=== PATIENT | male | born 1995 | race Caucasian/White ===

== ENCOUNTER 2018-12-09 10:32 | Emergency (ER) | payer SELFPAY ==
--- NOTE | 2018-12-09 10:37 | EDM.PDOC ---
ED HPI GENERAL MEDICAL PROBLEM - General Chief Complaint: Upper Extremity Injury/Pain Stated Complaint: FELL ON LEFT HAND Time Seen by Provider: 12/09/18 10:35 Source of Information: Reports: Patient History Limitations: Reports: No Limitations - History of Present Illness INITIAL COMMENTS - FREE TEXT/NARRATIVE: HISTORY AND PHYSICAL: History of present illness: Patient is a 23-year-old male who presents to the emergency room today with complaints of left wrist pain near the radius/thumb. He states he fell on an outstretched hand off of his skateboard area and he denies hitting his head or any loss of consciousness. Denies any numbness or tingling. Able to squeeze and make a fist without difficulty, although does cause some pain to the noonan surface near the thumb. Patient denies any fever, chills, headache, change in vision, syncope or near syncope. Denies any chest pain, back pain, shortness of breath or cough. Denies any abdominal pain, nausea, vomiting, diarrhea, constipation or dysuria. Has not noted any blood in urine or stool. Patient has been eating and drinking appropriately. Review of systems: As per history of present illness and below otherwise all systems reviewed and negative. Past medical history: As per history of present illness and as reviewed below otherwise noncontributory. Surgical history: As per history of present illness and as reviewed below otherwise noncontributory. Social history: See social history for further information Family history: As per history of present illness and as reviewed below otherwise noncontributory. Physical exam: General: Well-developed and well-nourished 23-year-old male. Alert and oriented. Nontoxic appearing and in no acute distress. HEENT: Atraumatic, normocephalic, pupils equal and reactive bilaterally, negative for conjunctival pallor or scleral icterus, mucous membranes moist, TMs normal bilaterally, throat clear, neck supple, nontender, trachea midline. No drooling or trismus noted. No meningeal signs. No hot potato voice noted. Lungs: Clear to auscultation, breath sounds equal bilaterally, chest nontender. Heart: S1S2, regular rate and rhythm without overt murmur Abdomen: Soft, nondistended, nontender. Negative for masses or hepatosplenomegaly. Negative for costovertebral tenderness. Pelvis: Stable nontender. Genitourinary: Deferred. Rectal: Deferred. Skin: Intact, warm, dry. No lesions or rashes noted. Extremities: Moves all extremities per self without difficulty or deficits, although does have pain with grasping/squeezing of the left hand along the palmar surface near the base of the left thumb. Tenderness with palpation to base of left thumb, strong radial pulse. Neurovascular unremarkable. Neuro: Awake, alert, oriented. Cranial nerves II through XII unremarkable. Cerebellum unremarkable. Motor and sensory unremarkable throughout. Exam nonfocal. Notes: X-ray shows no acute osseous abnormality, dislocation or fracture. We'll place in a thumb spica wrist splint. Encouraged to follow up with the orthopedic provider for follow-up and management. Supportive care measures were reviewed and discussed. Voices understanding and is agreeable to plan of care. Denies any further questions or concerns at this time. Diagnostics: X-ray wrist Therapeutics: Thumb spica wrist splint Prescription: Diclofenac Impression: Left wrist injury Plan: 1. Rest, ice, elevate the affected extremity. Please wear the splint as directed. 2. Tylenol and/or Ibuprofen as needed for pain management. 3. Follow up with the Orthopedic provider as we discussed. Return to the ED as needed and as discussed. Definitive disposition and diagnosis as appropriate pending reevaluation and review of above. Left Wrist Pain Score (Numeric/FACES): 5 - Related Data Allergies Allergy/AdvReac Type Severity Reaction Status Date / Time acetaminophen Allergy Vomiting Verified 12/09/18 10:45 Home Meds: Home Meds . [No Known Home Meds] 12/09/18 [History] Review of Systems - Review of Systems Review Of Systems: ROS reveals no pertinent complaints other than HPI. ED EXAM, GENERAL - Physical Exam Exam: See Below (See dictation) Course - Vital Signs Last Recorded V/S: Last Vital Signs Temp 98.0 F 12/09/18 10:42 Pulse 76 12/09/18 10:42 Resp 18 12/09/18 10:42 BP 131/70 12/09/18 10:42 Pulse Ox 99 12/09/18 10:42 - Orders/Labs/Meds Orders: Active Orders 24 hr Category Date Time Status DME for Discharge [COMM] Stat Oth 12/09/18 11:13 Ordered Meds: Medications Discontinued Medications Generic Name Dose Route Start Last Admin Trade Name Freq PRN Reason Stop Dose Admin Ketorolac Tromethamine 60 mg 12/09/18 10:47 Toradol IM 12/09/18 10:48 ONETIME ONE Departure - Departure Time of Disposition: 11:24 Disposition: Home, Self-Care 01 Clinical Impression: Left wrist injury Qualifiers: Encounter type: initial encounter Qualified Code(s): S69.92XA - Unspecified injury of left wrist, hand and finger(s), initial encounter - Discharge Information Instructions: Wrist Splint, Adult, [id number] Forms: ED Department Discharge Additional Instructions: The following information is given to patients seen in the emergency department who are being discharged to home. This information is to outline your options for follow-up care. We provide all patients seen in our emergency department with a follow-up referral. The need for follow-up, as well as the timing and circumstances, are variable depending upon the specifics of your emergency department visit. If you don't have a primary care physician on staff, we will provide you with a referral. We always advise you to contact your personal physician following an emergency department visit to inform them of the circumstance of the visit and for follow-up with them and/or the need for any referrals to a consulting specialist. The emergency department will also refer you to a specialist when appropriate. This referral assures that you have the opportunity for follow-up care with a specialist. All of these measure are taken in an effort to provide you with optimal care, which includes your follow-up. Under all circumstances we always encourage you to contact your private physician who remains a resource for coordinating your care. When calling for follow-up care, please make the office aware that this follow-up is from your recent emergency room visit. If for any reason you are refused follow-up, please contact the [facility] Emergency Department at and asked to speak to the emergency department charge nurse. [facility] [address] [place] [id number] [address] [facility] - [facility] Professional Building [address] [place] [address], [address] [place] [address] 1. Rest, ice, elevate the affected extremity. Please wear the splint as directed. 2. Tylenol and/or Ibuprofen as needed for pain management. 3. Follow up with the Orthopedic provider as we discussed. Return to the ED as needed and as discussed. - My Orders Last 24 Hours: My Active Orders 12/09/18 11:13 DME for Discharge [COMM] Stat - Assessment/Plan Last 24 Hours: My Active Orders 12/09/18 11:13 DME for Discharge [COMM] Stat
[2018-12-09] MEDS ORDERED: Ketorolac 60 MG/2 ML SDV IM ONE (10:47)
--- NOTE | 2018-12-09 11:21 | CR ---
EXAMINATION: Left wrist HISTORY: Fall COMPARISON: None TECHNIQUE: 3 views FINDINGS/IMPRESSION: There is no acute osseous abnormality, dislocation, or fracture. Bone mineralization is normal. The radiocarpal alignment is preserved.
== END 2018-12-09 11:50 | disposition home or self-care (01) ==
LOC: MW.ED 10:32
DX: S69.92XA Unspecified injury of left wrist, hand and finger(s), initial encounter (principal); V00.131A Fall from skateboard, initial encounter
CPT/HCPCS: 29125; 73110; 96372; 99283; J1885

== ENCOUNTER 2019-02-24 10:31 | Emergency (ER) | payer SELFPAY ==
--- NOTE | 2019-02-24 11:01 | EDM.PDOC ---
ED HPI GENERAL MEDICAL PROBLEM - General Chief Complaint: Lower Extremity Injury/Pain Stated Complaint: INJURED LT FOOT Time Seen by Provider: 02/24/19 11:01 Source of Information: Reports: Patient History Limitations: Reports: No Limitations - History of Present Illness INITIAL COMMENTS - FREE TEXT/NARRATIVE: HISTORY AND PHYSICAL: History of present illness: Patient is a 23-year-old male presents to the ED with complaint of left foot pain. He states he went for a run a couple of days ago, woke up the next day with pain in his left foot. States it is a sharp pain when he bears weight on it. Denies any specific injury or trauma. Review of systems: As per history of present illness and below otherwise all systems reviewed and negative. Past medical history: As per history of present illness and as reviewed below otherwise noncontributory. Surgical history: As per history of present illness and as reviewed below otherwise noncontributory. Social history: No reported history of drug or alcohol abuse. Family history: As per history of present illness and as reviewed below otherwise noncontributory. Physical exam: General: Patient sitting comfortably in no acute distress and nontoxic appearing HEENT: Atraumatic, normocephalic, pupils reactive, negative for conjunctival pallor or scleral icterus, mucous membranes moist, throat clear, neck supple, nontender, trachea midline. No meningeal signs. Lungs: Clear to auscultation, breath sounds equal bilaterally, chest nontender. Heart: S1S2, regular, negative for clicks, rubs, or overt murmur. Abdomen: Soft, nondistended, nontender. Negative for masses or hepatosplenomegaly. Negative for costovertebral tenderness. No rigidity, rebound , guarding. Pelvis: Stable nontender. Genitourinary: Deferred. Rectal: Deferred. Extremities: No obvious deformity or swelling. No ankle tenderness to palpation of ROM. Pain to palpation of the left lateral foot. CMS intact distally. Atraumatic, negative for cords or calf pain. Neurovascular unremarkable. Neuro: Awake, alert, oriented. Cranial nerves II through XII unremarkable. Cerebellum unremarkable. Motor and sensory unremarkable throughout. Exam nonfocal. Notes: Diagnostics: x-ray left foot Therapeutics: Post op shoes Crutches Prescriptions: Impression: Left foot pain Plan: Ice, elevate, and motrin as needed as discussed Follow up with primary care provider or podiatry Return to ED as needed as discussed Definitive disposition and diagnosis as appropriate pending reevaluation and review of above. Left Foot Pain Score (Numeric/FACES): 8 - Related Data Allergies Allergy/AdvReac Type Severity Reaction Status Date / Time acetaminophen Allergy Vomiting Verified 02/24/19 10:41 Home Meds: Home Meds . [No Known Home Meds] 02/24/19 [History] Past Medical History - Infectious Disease History Infectious Disease History: Reports: None - Past Surgical History GI Surgical History: Reports: Appendectomy, Hernia, Abdominal Other Musculoskeletal Surgeries/Procedures:: has had a couple of broken bones in the past; L radial/ulnar fx Social & Family History - Family History Family Medical History: Noncontributory - Tobacco Use Smoking Status *Q: Current Every Day Smoker Years of Tobacco use: 1 Packs/Tins Daily: 0.5 - Caffeine Use Caffeine Use: Reports: Coffee, Energy Drinks - Recreational Drug Use Recreational Drug Use: No Review of Systems - Review of Systems Review Of Systems: ROS reveals no pertinent complaints other than HPI. ED EXAM, GENERAL - Physical Exam Exam: See Below (see dictation) Course - Vital Signs Last Recorded V/S: Last Vital Signs Temp 97.2 F 02/24/19 10:41 Pulse 69 02/24/19 10:41 Resp 16 02/24/19 10:41 BP 119/66 02/24/19 10:41 Pulse Ox 97 02/24/19 10:41 - Orders/Labs/Meds Orders: Active Orders 24 hr Category Date Time Status DME for Discharge [COMM] Stat Oth 02/24/19 12:19 Ordered Departure - Departure Time of Disposition: 12:30 Disposition: Home, Self-Care 01 Condition: Good Clinical Impression: Left foot pain - Discharge Information Referrals: PCP,Unknown [Primary Care Provider] - Forms: ED Department Discharge Additional Instructions: The following information is given to patients seen in the emergency department who are being discharged to home. This information is to outline your options for follow-up care. We provide all patients seen in our emergency department with a follow-up referral. The need for follow-up, as well as the timing and circumstances, are variable depending upon the specifics of your emergency department visit. If you don't have a primary care physician on staff, we will provide you with a referral. We always advise you to contact your personal physician following an emergency department visit to inform them of the circumstance of the visit and for follow-up with them and/or the need for any referrals to a consulting specialist. The emergency department will also refer you to a specialist when appropriate. This referral assures that you have the opportunity for follow-up care with a specialist. All of these measure are taken in an effort to provide you with optimal care, which includes your follow-up. Under all circumstances we always encourage you to contact your private physician who remains a resource for coordinating your care. When calling for follow-up care, please make the office aware that this follow-up is from your recent emergency room visit. If for any reason you are refused follow-up, please contact the [facility] Emergency Department at and asked to speak to the emergency department charge nurse. [facility] [address] [place] [address] [facility] [address] [place] [id number] [facility] Primary Care - Podiatry [address] [place] [id number] [facility] [address] [place] [address] Ice, elevate, and motrin as needed as discussed Follow up with primary care provider or podiatry Return to ED as needed as discussed - My Orders Last 24 Hours: My Active Orders 02/24/19 12:19 DME for Discharge [COMM] Stat - Assessment/Plan Last 24 Hours: My Active Orders 02/24/19 12:19 DME for Discharge [COMM] Stat
--- NOTE | 2019-02-24 12:26 | CR ---
EXAMINATION: Left foot HISTORY: Pain COMPARISON: None TECHNIQUE: 2 views FINDINGS/IMPRESSION: Lucency along the lateral aspect of the navicular bone, likely an accessory ossification without a definite fracture. Remaining osseous structures and joint spaces appear preserved. Bone mineralization is otherwise normal.
== END 2019-02-24 12:40 | disposition home or self-care (01) ==
LOC: MW.ED 10:31
DX: M79.672 Pain in left foot (principal); Z88.6 Allergy status to analgesic agent
CPT/HCPCS: 73620-26-LT; 73620-LT; 99283; 99283-25

== ENCOUNTER 2019-03-24 20:36 | Emergency (ER) | payer SELFPAY ==
[2019-03-24] MEDS ORDERED: cefTRIAXone 1 GM Vial IM ONE (21:01)
--- NOTE | 2019-03-24 21:01 | EDM.PDOC ---
ED HPI GENERAL MEDICAL PROBLEM - General Chief Complaint: Skin Complaint Stated Complaint: BITE ON RT ARM Time Seen by Provider: 03/24/19 20:58 Source of Information: Reports: Patient - History of Present Illness INITIAL COMMENTS - FREE TEXT/NARRATIVE: HISTORY AND PHYSICAL: History of present illness: [Patient presents with cellulitis on his right upper extremity he has a small boil which is drained by squeezing but currently has a surrounding cellulitis 6 cm just proximal of his elbow no joint involvement free range of motion with no pain in his red nontender small central focus of induration about the size of a dime where he has been draining the lesion No fever nausea vomiting chills sweats ] Review of systems: As per history of present illness and below otherwise all systems reviewed and negative. Past medical history: As per history of present illness and as reviewed below otherwise noncontributory. Surgical history: As per history of present illness and as reviewed below otherwise noncontributory. Social history: No reported history of drug or alcohol abuse. Family history: As per history of present illness and as reviewed below otherwise noncontributory. Physical exam: HEENT: Atraumatic, normocephalic, pupils reactive, negative for conjunctival pallor or scleral icterus, mucous membranes moist, throat clear, neck supple, nontender, trachea midline. Lungs: Clear to auscultation, breath sounds equal bilaterally, chest nontender. Heart: S1S2, regular, negative for clicks, rubs, or JVD. Abdomen: Soft, nondistended, nontender. Negative for masses or hepatosplenomegaly. Negative for costovertebral tenderness. Pelvis: Stable nontender. Genitourinary: Deferred. Rectal: Deferred. Extremities: Atraumatic, negative for cords or calf pain. Neurovascular unremarkable. Neuro: Awake, alert, oriented. Cranial nerves II through XII unremarkable. Cerebellum unremarkable. Motor and sensory unremarkable throughout. Exam nonfocal. Gent as per history of present illness otherwise unremarkable Diagnostics: [Demarcated lesion with skin pen ] Therapeutics: [1 g Rocephin IM Bactrim double strength #20 no refill ] Impression: [cellulitis] Definitive disposition and diagnosis as appropriate pending reevaluation and review of above. Right Upper Arm Pain Score (Numeric/FACES): 3 - Related Data Allergies Allergy/AdvReac Type Severity Reaction Status Date / Time acetaminophen Allergy Vomiting Verified 03/24/19 20:44 Home Meds: Home Meds . [No Known Home Meds] 02/24/19 [History] Past Medical History - Infectious Disease History Infectious Disease History: Reports: None - Past Surgical History GI Surgical History: Reports: Appendectomy, Hernia, Abdominal Other Musculoskeletal Surgeries/Procedures:: has had a couple of broken bones in the past; L radial/ulnar fx Social & Family History - Family History Family Medical History: Noncontributory - Tobacco Use Smoking Status *Q: Current Every Day Smoker Years of Tobacco use: 10 Packs/Tins Daily: 0.5 - Caffeine Use Caffeine Use: Reports: Energy Drinks - Recreational Drug Use Recreational Drug Use: No ED ROS GENERAL - Review of Systems Review Of Systems: See Below ED EXAM, SKIN/RASH Exam: See Below Course - Vital Signs Last Recorded V/S: Last Vital Signs Temp 96.9 F 03/24/19 20:45 Pulse 88 03/24/19 20:45 Resp 18 03/24/19 20:45 BP 118/72 03/24/19 20:45 Pulse Ox 97 03/24/19 20:45 Departure - Departure Time of Disposition: 21:00 Disposition: Home, Self-Care 01 Condition: Good Clinical Impression: Cellulitis - Discharge Information Referrals: PCP,None [Primary Care Provider] - Additional Instructions: The following information is given to patients seen in the emergency department who are being discharged to home. This information is to outline your options for follow-up care. We provide all patients seen in our emergency department with a follow-up referral. The need for follow-up, as well as the timing and circumstances, are variable depending upon the specifics of your emergency department visit. If you don't have a primary care physician on staff, we will provide you with a referral. We always advise you to contact your personal physician following an emergency department visit to inform them of the circumstance of the visit and for follow-up with them and/or the need for any referrals to a consulting specialist. The emergency department will also refer you to a specialist when appropriate. This referral assures that you have the opportunity for follow-up care with a specialist. All of these measure are taken in an effort to provide you with optimal care, which includes your follow-up. Under all circumstances we always encourage you to contact your private physician who remains a resource for coordinating your care. When calling for follow-up care, please make the office aware that this follow-up is from your recent emergency room visit. If for any reason you are refused follow-up, please contact the [facility] emergency department at and asked to speak to the emergency department charge nurse.
[2019-03-24] MEDS ORDERED: Lidocaine 1% 2 ML ONE (21:05)
== END 2019-03-24 21:33 | disposition home or self-care (01) ==
LOC: MW.ED 20:36
DX: L03.113 Cellulitis of right upper limb (principal); F17.210 Nicotine dependence, cigarettes, uncomplicated; Z88.6 Allergy status to analgesic agent
CPT/HCPCS: 96372; 99281; J0696; J2001; 99282

== ENCOUNTER 2019-07-20 11:44 | Emergency (ER) | payer SELFPAY ==
[2019-07-20] MEDS ORDERED: Albuterol/Ipratropium 3.0-0.5 MG/3 ML Neb Soln NEB ONE (11:58)
--- NOTE | 2019-07-20 11:59 | EDM.PDOC ---
ED HPI GENERAL MEDICAL PROBLEM - General Chief Complaint: ENT Problem Stated Complaint: SHORTNESS OF BREATHE Time Seen by Provider: 07/20/19 11:59 Source of Information: Reports: Patient - History of Present Illness INITIAL COMMENTS - FREE TEXT/NARRATIVE: HISTORY AND PHYSICAL: History of present illness: [patient has cough for 4 days increasing in severity, keeps patient awake at noc no f/n/v/c/s/, states sob although NAD, no retractions or pursed lip breathing] Review of systems: As per history of present illness and below otherwise all systems reviewed and negative. Past medical history: As per history of present illness and as reviewed below otherwise noncontributory. Surgical history: As per history of present illness and as reviewed below otherwise noncontributory. Social history: No reported history of drug or alcohol abuse. Family history: As per history of present illness and as reviewed below otherwise noncontributory. Physical exam: HEENT: Atraumatic, normocephalic, pupils reactive, negative for conjunctival pallor or scleral icterus, mucous membranes moist, throat clear, neck supple, nontender, trachea midline. Lungs: Clear to auscultation, breath sounds equal bilaterally, chest nontender. Heart: S1S2, regular, negative for clicks, rubs, or JVD. Abdomen: Soft, nondistended, nontender. Negative for masses or hepatosplenomegaly. Negative for costovertebral tenderness. Pelvis: Stable nontender. Genitourinary: Deferred. Rectal: Deferred. Extremities: Atraumatic, negative for cords or calf pain. Neurovascular unremarkable. Neuro: Awake, alert, oriented. Cranial nerves II through XII unremarkable. Cerebellum unremarkable. Motor and sensory unremarkable throughout. Exam nonfocal. Diagnostics: [influenza chest 1 v ] Therapeutics: [rest fluid nutrition phenergan /codeine 48 hours off work hfa ] Impression: influenza ] Definitive disposition and diagnosis as appropriate pending reevaluation and review of above. Chest Pain Score (Numeric/FACES): 4 - Related Data Allergies Allergy/AdvReac Type Severity Reaction Status Date / Time acetaminophen Allergy Vomiting Verified 07/20/19 11:58 Home Meds: Home Meds . [No Known Home Meds] 02/24/19 [History] Past Medical History - Infectious Disease History Infectious Disease History: Reports: None - Past Surgical History GI Surgical History: Reports: Appendectomy, Hernia, Abdominal Other Musculoskeletal Surgeries/Procedures:: has had a couple of broken bones in the past; L radial/ulnar fx Social & Family History - Family History Family Medical History: Noncontributory - Caffeine Use Caffeine Use: Reports: Energy Drinks ED ROS GENERAL - Review of Systems Review Of Systems: See Below ED EXAM, GENERAL - Physical Exam Exam: See Below Course - Vital Signs Last Recorded V/S: Last Vital Signs Temp 97.8 F 07/20/19 11:58 Pulse 81 07/20/19 11:58 Resp 18 07/20/19 11:58 BP 112/69 07/20/19 11:58 Pulse Ox 98 07/20/19 11:58 - Orders/Labs/Meds Orders: Active Orders 24 hr Category Date Time Status RT Aerosol Therapy [RC] ASDIRECTED Care 07/20/19 11:58 Active Meds: Medications Discontinued Medications Generic Name Dose Route Start Last Admin Trade Name Freq PRN Reason Stop Dose Admin Albuterol/Ipratropium 3 ml 07/20/19 11:58 07/20/19 12:07 Duoneb 3.0-0.5 Mg/3 Ml NEB 07/20/19 11:59 3 ml ONETIME ONE Administration Departure - Departure Time of Disposition: 12:36 Disposition: Home, Self-Care 01 Condition: Good Clinical Impression: Influenza - Discharge Information Referrals: PCP,None [Primary Care Provider] - Forms: ED Department Discharge Additional Instructions: The following information is given to patients seen in the emergency department who are being discharged to home. This information is to outline your options for follow-up care. We provide all patients seen in our emergency department with a follow-up referral. The need for follow-up, as well as the timing and circumstances, are variable depending upon the specifics of your emergency department visit. If you don't have a primary care physician on staff, we will provide you with a referral. We always advise you to contact your personal physician following an emergency department visit to inform them of the circumstance of the visit and for follow-up with them and/or the need for any referrals to a consulting specialist. The emergency department will also refer you to a specialist when appropriate. This referral assures that you have the opportunity for follow-up care with a specialist. All of these measure are taken in an effort to provide you with optimal care, which includes your follow-up. Under all circumstances we always encourage you to contact your private physician who remains a resource for coordinating your care. When calling for follow-up care, please make the office aware that this follow-up is from your recent emergency room visit. If for any reason you are refused follow-up, please contact the [facility] emergency department at and asked to speak to the emergency department charge nurse. Sepsis Event Note - Focused Exam Vital Signs: Vital Signs Temp Pulse Resp BP Pulse Ox 07/20/19 11:58 97.8 F 81 18 112/69 98 Date Exam was Performed: 07/20/19 Time Exam was Performed: 12:35 - My Orders Last 24 Hours: My Active Orders 07/20/19 11:58 RT Aerosol Therapy [RC] ASDIRECTED - Assessment/Plan Last 24 Hours: My Active Orders 07/20/19 11:58 RT Aerosol Therapy [RC] ASDIRECTED
--- NOTE | 2019-07-20 12:31 | CR ---
INDICATION: pain, SOAX 4 days TECHNIQUE: Chest 1 view. COMPARISON: None. FINDINGS: Cardiovascular and mediastinum: Heart size and vasculature are normal in caliber and appearance. Mediastinum is within normal limits. Lungs and pleural space: Lungs are clear. No sign of infiltrate or mass. No sign of pleural effusion. No pneumothorax. Bones and soft tissues: No significant findings. IMPRESSION: Unremarkable chest. Dictated by: Rio Lazo MD @ 07/20/2019 12:30:56 (Electronically Signed)
== END 2019-07-20 12:53 | disposition home or self-care (01) ==
LOC: MW.ED 11:44
DX: J11.1 Influenza due to unidentified influenza virus with other respiratory manifestations (principal); Z88.8 Allergy status to other drugs, medicaments and biological substances
CPT/HCPCS: 71045; 71045-26; 87804; 94640; 99283; 99285-25; J7620-GY

== ENCOUNTER 2019-09-06 08:44 | Emergency (ER) | payer SELFPAY ==
--- NOTE | 2019-09-06 09:02 | EDM.PDOC ---
ED HPI GENERAL MEDICAL PROBLEM - General Chief Complaint: ENT Problem Stated Complaint: SWOLLEN TONSILS Time Seen by Provider: 09/06/19 08:57 Source of Information: Reports: Patient - History of Present Illness INITIAL COMMENTS - FREE TEXT/NARRATIVE: HISTORY AND PHYSICAL: History of present illness: [Sore throat increasing in severity over the last several days some difficulty with solid food no difficulty with liquid no muffled voice drooling or trismus thank you] Review of systems: As per history of present illness and below otherwise all systems reviewed and negative. Past medical history: As per history of present illness and as reviewed below otherwise noncontributory. Surgical history: As per history of present illness and as reviewed below otherwise noncontributory. Social history: No reported history of drug or alcohol abuse. Family history: As per history of present illness and as reviewed below otherwise noncontributory. Physical exam: HEENT: Atraumatic, normocephalic, pupils reactive, negative for conjunctival pallor or scleral icterus, mucous membranes moist, throat clear, neck supple, nontender, trachea midline. Erythema no exudates no meningeal signs tympanic membranes injected no bulging no mastoid tenderness no pain with movement of the auricle Lungs: Clear to auscultation, breath sounds equal bilaterally, chest nontender. Heart: S1S2, regular, negative for clicks, rubs, or JVD. Abdomen: Soft, nondistended, nontender. Negative for masses or hepatosplenomegaly. Negative for costovertebral tenderness. Pelvis: Stable nontender. Genitourinary: Deferred. Rectal: Deferred. Extremities: Atraumatic, negative for cords or calf pain. Neurovascular unremarkable. Neuro: Awake, alert, oriented. Cranial nerves II through XII unremarkable. Cerebellum unremarkable. Motor and sensory unremarkable throughout. Exam nonfocal. Diagnostics: [] Therapeutics: [None able to swallow pills refused IM injections Amoxicillin 100 per 5 dosing ] Impression: [pharyngitis] Definitive disposition and diagnosis as appropriate pending reevaluation and review of above. - Related Data Allergies Allergy/AdvReac Type Severity Reaction Status Date / Time acetaminophen Allergy Vomiting Verified 07/20/19 11:58 Home Meds: Home Meds . [No Known Home Meds] 02/24/19 [History] Past Medical History - Infectious Disease History Infectious Disease History: Reports: None - Past Surgical History GI Surgical History: Reports: Appendectomy, Hernia, Abdominal Other Musculoskeletal Surgeries/Procedures:: has had a couple of broken bones in the past; L radial/ulnar fx Social & Family History - Family History Family Medical History: Noncontributory - Caffeine Use Caffeine Use: Reports: Energy Drinks ED ROS GENERAL - Review of Systems Review Of Systems: See Below ED EXAM, GENERAL - Physical Exam Exam: See Below Departure - Departure Time of Disposition: 09:00 Disposition: Home, Self-Care 01 Condition: Good Clinical Impression: Pharyngitis - Discharge Information Referrals: PCP,None [Primary Care Provider] - Additional Instructions: The following information is given to patients seen in the emergency department who are being discharged to home. This information is to outline your options for follow-up care. We provide all patients seen in our emergency department with a follow-up referral. The need for follow-up, as well as the timing and circumstances, are variable depending upon the specifics of your emergency department visit. If you don't have a primary care physician on staff, we will provide you with a referral. We always advise you to contact your personal physician following an emergency department visit to inform them of the circumstance of the visit and for follow-up with them and/or the need for any referrals to a consulting specialist. The emergency department will also refer you to a specialist when appropriate. This referral assures that you have the opportunity for follow-up care with a specialist. All of these measure are taken in an effort to provide you with optimal care, which includes your follow-up. Under all circumstances we always encourage you to contact your private physician who remains a resource for coordinating your care. When calling for follow-up care, please make the office aware that this follow-up is from your recent emergency room visit. If for any reason you are refused follow-up, please contact the [facility] emergency department at and asked to speak to the emergency department charge nurse.
== END 2019-09-06 09:09 | disposition home or self-care (01) ==
LOC: MW.ED 08:44
DX: J02.9 Acute pharyngitis, unspecified (principal); Z88.6 Allergy status to analgesic agent
CPT/HCPCS: 99282

== ENCOUNTER 2019-10-02 11:06 | Emergency (ER) | payer SELFPAY ==
[2019-10-02] MEDS ORDERED: Alum Hydrox/Mag Hydrox/Simeth 15 ML, Lidocaine 2% 5 ML PO ONE ×2 (11:26)
--- NOTE | 2019-10-02 11:29 | EDM.PDOC ---
ED HPI GENERAL MEDICAL PROBLEM - General Chief Complaint: Respiratory Problem Stated Complaint: CHEST PAIN Time Seen by Provider: 10/02/19 11:26 Source of Information: Reports: Patient History Limitations: Reports: No Limitations - History of Present Illness INITIAL COMMENTS - FREE TEXT/NARRATIVE: HISTORY AND PHYSICAL: History of present illness: Patient is a 24-year-old male without significant past medical history presents to the ED with complaints of a burning chest pain. Patient states he had a cough 2 weeks ago which is still lingering. He states last night he had some vomiting and diarrhea. He states he woke up this morning with a burning feeling all along his chest that goes all the way up into his esophagus. He states that burning is worse when he coughs. He states he does feel somewhat short of breath. He denies fevers or chills, abdominal pain, hememesis, hemoptysis, calf pain or swelling, recent travel. Patient does smoke a third of pack a day x10 years. Reports social alcohol use on weekends. Denies illicit drug use. Review of systems: As per history of present illness and below otherwise all systems reviewed and negative. Past medical history: As per history of present illness and as reviewed below otherwise noncontributory. Surgical history: As per history of present illness and as reviewed below otherwise noncontributory. Social history: No reported history of drug or alcohol abuse. Family history: As per history of present illness and as reviewed below otherwise noncontributory. Physical exam: General: Patient sitting comfortably in no acute distress and nontoxic appearing HEENT: Atraumatic, normocephalic, pupils reactive, negative for conjunctival pallor or scleral icterus, mucous membranes moist, throat clear, neck supple, nontender, trachea midline. No meningeal signs. Lungs: Clear to auscultation, breath sounds equal bilaterally, chest nontender. Heart: S1S2, regular, negative for clicks, rubs, or overt murmur. Abdomen: Soft, nondistended, nontender. Negative for masses or hepatosplenomegaly. Negative for costovertebral tenderness. No rigidity, rebound , guarding. Pelvis: Stable nontender. Genitourinary: Deferred. Rectal: Deferred. Extremities: Atraumatic, negative for cords or calf pain. Neurovascular unremarkable. Neuro: Awake, alert, oriented. Cranial nerves II through XII unremarkable. Cerebellum unremarkable. Motor and sensory unremarkable throughout. Exam nonfocal. Notes: Diagnostics: EKG, CXR, CBC, CMP, troponin Therapeutics: GI cocktail Prescriptions: Azithromycin Ventolin inhaler Impression: Acute bronchitis Plan: Take medications as prescribed Follow up with primary care provider Return to ED as needed as discussed Definitive disposition and diagnosis as appropriate pending reevaluation and review of above. Chest Pain Score (Numeric/FACES): 7 - Related Data Allergies Allergy/AdvReac Type Severity Reaction Status Date / Time acetaminophen Allergy Vomiting Verified 10/02/19 11:15 Home Meds: Home Meds Albuterol [Ventolin HFA] 1 puff INH Q4H #1 inhaler 10/02/19 [Rx] Azithromycin [Zithromax] 250 mg PO ASDIRECTED #1 dosepk 10/02/19 [Rx] Past Medical History HEENT History: Reports: None Cardiovascular History: Reports: None Respiratory History: Reports: Asthma Gastrointestinal History: Reports: Chronic Diarrhea Genitourinary History: Reports: None Neurological History: Reports: Concussion Psychiatric History: Reports: None Endocrine/Metabolic History: Reports: None Hematologic History: Reports: None Immunologic History: Reports: None Oncologic (Cancer) History: Reports: None Dermatologic History: Reports: Eczema - Infectious Disease History Infectious Disease History: Reports: None - Past Surgical History Head Surgeries/Procedures: Reports: None GI Surgical History: Reports: Appendectomy, Hernia, Abdominal Other Musculoskeletal Surgeries/Procedures:: has had a couple of broken bones in the past; L radial/ulnar fx Social & Family History - Family History Family Medical History: Noncontributory - Tobacco Use Smoking Status *Q: Current Every Day Smoker Years of Tobacco use: 10 Packs/Tins Daily: 0.3 - Caffeine Use Caffeine Use: Reports: Energy Drinks - Recreational Drug Use Recreational Drug Use: No ED ROS GENERAL - Review of Systems Review Of Systems: Comprehensive ROS is negative, except as noted in HPI. ED EXAM, GENERAL - Physical Exam Exam: See Below (see dictation) Course - Vital Signs Last Recorded V/S: Last Vital Signs Temp 98.3 F 10/02/19 11:13 Pulse 97 10/02/19 11:13 Resp 20 10/02/19 11:13 BP 130/68 10/02/19 11:13 Pulse Ox 100 10/02/19 11:13 - Orders/Labs/Meds Orders: Active Orders 24 hr Category Date Time Status EKG 12 Lead [EKG Documentation Completion] [RC] ROUTINE Care 10/02/19 11:27 Active Labs: Laboratory Tests 10/02/19 10/02/19 Range/Units 11:35 11:35 WBC 8.40 (4.0-11.0) K/uL RBC 5.56 (4.50-5.90) M/uL Hgb 17.5 H (13.0-17.0) g/dL Hct 50.3 H (38.0-50.0) % MCV 90.5 (80.0-98.0) fL MCH 31.5 (27.0-32.0) pg MCHC 34.8 (31.0-37.0) g/dL RDW Std Deviation 41.0 (28.0-62.0) fl RDW Coeff of Hood 12 (11.0-15.0) % Plt Count 214 (150-400) K/uL MPV 10.70 (7.40-12.00) fL Neut % (Auto) 65.7 (48.0-80.0) % Lymph % (Auto) 24.2 (16.0-40.0) % [place] % (Auto) 9.6 (0.0-15.0) % Eos % (Auto) 0.4 (0.0-7.0) % Baso % (Auto) 0.1 (0.0-1.5) % Neut # (Auto) 5.5 (1.4-5.7) K/uL Lymph # (Auto) 2.0 (0.6-2.4) K/uL [place] # (Auto) 0.8 (0.0-0.8) K/uL Eos # (Auto) 0.0 (0.0-0.7) K/uL Baso # (Auto) 0.0 (0.0-0.1) K/uL Nucleated RBC % 0.0 /100WBC Nucleated RBCs # 0 K/uL Sodium 139 (136-148) mmol/L Potassium 3.0 L (3.5-5.1) mmol/L Chloride 100 (98-107) mmol/L Carbon Dioxide 23.6 (21.0-32.0) mmol/L BUN 14 (7.0-18.0) mg/dL Creatinine 1.1 (0.8-1.3) mg/dL Est Cr Clr Drug Dosing 96.81 mL/min Estimated GFR (MDRD) > 60.0 ml/min Glucose 89 (74-106) mg/dL Calcium 9.4 (8.5-10.1) mg/dL Total Bilirubin 1.0 (0.2-1.0) mg/dL AST 34 (15-37) IU/L ALT 62 (14-63) IU/L Alkaline Phosphatase 74 (46-116) U/L Troponin I < 0.050 (0.000-0.056) ng/mL Total Protein 8.6 H (6.4-8.2) g/dL Albumin 4.3 (3.4-5.0) g/dL Globulin 4.3 H (2.6-4.0) g/dL Albumin/Globulin Ratio 1.0 (0.9-1.6) Meds: Medications Discontinued Medications Generic Name Dose Route Start Last Admin Trade Name Freq PRN Reason Stop Dose Admin Al Hydroxide/Mg Hydroxide 15 0 ml 10/02/19 11:26 10/02/19 11:38 ml/ Lidocaine HCl 5 ml PO 10/02/19 11:27 20 each ONETIME ONE Administration Potassium Chloride 40 meq 10/02/19 12:15 10/02/19 12:37 Potassium Chloride PO 10/02/19 12:16 40 meq ONETIME ONE Administration Departure - Departure Time of Disposition: 13:18 Disposition: Home, Self-Care 01 Condition: Good Clinical Impression: Acute bronchitis - Discharge Information Referrals: PCP,None [Primary Care Provider] - Forms: ED Department Discharge Additional Instructions: The following information is given to patients seen in the emergency department who are being discharged to home. This information is to outline your options for follow-up care. We provide all patients seen in our emergency department with a follow-up referral. The need for follow-up, as well as the timing and circumstances, are variable depending upon the specifics of your emergency department visit. If you don't have a primary care physician on staff, we will provide you with a referral. We always advise you to contact your personal physician following an emergency department visit to inform them of the circumstance of the visit and for follow-up with them and/or the need for any referrals to a consulting specialist. The emergency department will also refer you to a specialist when appropriate. This referral assures that you have the opportunity for follow-up care with a specialist. All of these measure are taken in an effort to provide you with optimal care, which includes your follow-up. Under all circumstances we always encourage you to contact your private physician who remains a resource for coordinating your care. When calling for follow-up care, please make the office aware that this follow-up is from your recent emergency room visit. If for any reason you are refused follow-up, please contact the [facility] Emergency Department at and asked to speak to the emergency department charge nurse. [facility] [address] [place] [id number] [facility] [address] [place] [id number] Take medications as prescribed Follow up with primary care provider Return to ED as needed as discussed Sepsis Event Note - Evaluation Sepsis Screening Result: No Definite Risk - Focused Exam Vital Signs: Vital Signs Temp Pulse Resp BP Pulse Ox 10/02/19 11:13 98.3 F 97 20 130/68 100 Date Exam was Performed: 10/02/19 Time Exam was Performed: 13:16 - My Orders Last 24 Hours: My Active Orders 10/02/19 11:27 EKG 12 Lead [EKG Documentation Completion] [RC] ROUTINE - Assessment/Plan Last 24 Hours: My Active Orders 10/02/19 11:27 EKG 12 Lead [EKG Documentation Completion] [RC] ROUTINE
[2019-10-02 12:11] LABS: BLOOD UREA NITROGEN,BUN 14 mg/dL (7.0-18.0); CARBON DIOXIDE,CO2 23.6 mmol/L (21.0-32.0); CHLORIDE,CL 100 mmol/L (98-107); GLUCOSE RANDOM 89 mg/dL (74-106); SODIUM,NA 139 mmol/L (136-148)
[2019-10-02] MEDS ORDERED: Potassium Chloride 10% 20 MEQ/15 ML Soln 30 ML UD Cup PO ONE (12:15)
--- NOTE | 2019-10-02 13:14 | CR ---
Chest: 2 views of the chest were obtained. Comparison: Prior chest x-ray of 07/20/19. Heart size and mediastinum are within normal limits. Lungs are clear with no acute parenchymal change. Bony structures are unremarkable. Impression: 1. Nothing acute is seen on 2 view chest x-ray. Diagnostic code #1 This report was dictated in [place] Standard Time
== END 2019-10-02 13:29 | disposition home or self-care (01) ==
LOC: MW.ED 11:06
DX: J20.9 Acute bronchitis, unspecified (principal); F17.210 Nicotine dependence, cigarettes, uncomplicated; Z88.8 Allergy status to other drugs, medicaments and biological substances
CPT/HCPCS: 36415; 71046; 80053; 84484; 85025; 93005; 99285; A9270

== ENCOUNTER 2021-01-03 07:09 | Emergency (ER) | payer SELFPAY ==
--- NOTE | 2021-01-03 07:10 | EDM.PDOC ---
ED HPI GENERAL MEDICAL PROBLEM - General Stated Complaint: SHOULDER PAIN Time Seen by Provider: 01/03/21 07:09 Source of Information: Reports: Patient History Limitations: Reports: No Limitations - History of Present Illness INITIAL COMMENTS - FREE TEXT/NARRATIVE: 25-year-old male no past medical history presents for pain in bilateral shoulders and neck. Patient notes that he has had this pain for years and that it is waxing and waning in intensity. It is sometimes the right shoulder which was worse yesterday sometimes the left which was worse today. It is worse with movement and with moving his head. He has never had any advanced imaging of the neck. He has seen a physician about this several months ago and was given lidocaine cream which did not seem to help but the pain resolved on its own over time. He is noted pain worsening over the last week or so. He works in construction and skateboards but denies any specific injury or heavy lifting incident that he can recall. He has not tried anything at home for the pain. He denies any muscle weakness, paresthesias. The pain is not in the midline neck but rather seems to be deep in the bilateral shoulders radiating up to the posterolateral neck. bilateral shoulder Pain Score (Numeric/FACES): 7 - Related Data Allergies Allergy/AdvReac Type Severity Reaction Status Date / Time acetaminophen Allergy Vomiting Verified 01/03/21 07:25 Home Meds: Home Meds Cyclobenzaprine [Flexeril] 10 mg PO TID PRN #20 tab 01/03/21 [Rx] Ibuprofen [Motrin] 600 mg PO Q6H PRN #20 tab 01/03/21 [Rx] Past Medical History HEENT History: Reports: None Cardiovascular History: Reports: None Respiratory History: Reports: Asthma Gastrointestinal History: Reports: Chronic Diarrhea Genitourinary History: Reports: None Neurological History: Reports: Concussion Psychiatric History: Reports: None Endocrine/Metabolic History: Reports: None Hematologic History: Reports: None Immunologic History: Reports: None Oncologic (Cancer) History: Reports: None Dermatologic History: Reports: Eczema - Infectious Disease History Infectious Disease History: Reports: None - Past Surgical History Head Surgeries/Procedures: Reports: None GI Surgical History: Reports: Appendectomy, Hernia, Abdominal Other Musculoskeletal Surgeries/Procedures:: has had a couple of broken bones in the past; L radial/ulnar fx Social & Family History - Family History Family Medical History: No Pertinent Family History - Caffeine Use Caffeine Use: Reports: Energy Drinks ED ROS GENERAL - Review of Systems Review Of Systems: Comprehensive ROS is negative, except as noted in HPI. ED EXAM, GENERAL - Physical Exam Exam: See Below Exam Limited By: No Limitations General Appearance: Alert, WD/WN, No Apparent Distress Throat/Mouth: Normal Voice, No Airway Compromise Head: Atraumatic, Normocephalic Neck: Normal Inspection Respiratory/Chest: No Respiratory Distress, No Accessory Muscle Use Cardiovascular: Normal Peripheral Pulses, Regular Rate, Rhythm Extremities: Normal Inspection, Other (No AC joint tenderness to palpation bilaterally, no C-spine tenderness to palpation, no para vertebral muscular tenderness to palpation) Neurological: Alert, Normal Cognition, Normal Gait Psychiatric: Normal Affect, Normal Mood Skin Exam: Warm, Dry, Intact, Normal Color Course - Vital Signs Last Recorded V/S: Last Vital Signs Temp 95.8 F L 01/03/21 07:22 Pulse 67 01/03/21 07:22 Resp 18 01/03/21 07:22 BP 149/89 H 01/03/21 07:22 Pulse Ox 100 01/03/21 07:22 - Orders/Labs/Meds Meds: Medications Discontinued Medications Generic Name Dose Route Start Last Admin Trade Name Freq PRN Reason Stop Dose Admin Cyclobenzaprine HCl 10 mg 01/03/21 07:31 01/03/21 07:45 Cyclobenzaprine 10 Mg Tab PO 01/03/21 07:32 10 mg ONETIME ONE Administration Dexamethasone 10 mg 01/03/21 07:31 01/03/21 07:45 Dexamethasone 10 Mg/Ml Sdv IM 01/03/21 07:32 10 mg STAT STA Administration Ketorolac Tromethamine 30 mg 01/03/21 07:31 01/03/21 07:45 Ketorolac 30 Mg/Ml Sdv IM 01/03/21 07:32 30 mg ONETIME ONE Administration - Re-Assessments/Exams Free Text/Narrative Re-Assessment/Exam: 01/03/21 07:34 Had a long discussion with patient regarding possible etiologies of pain. Possible cervicalgia, nerve impingement, herniated cervical disc. Explained to patient that we will avoid advanced imaging at this time as he can pursue these options with his primary care physician as my suspicion of fracture, dislocation is very low considering there is no injury. Will treat symptomatically with steroid injection, Toradol, muscle relaxant. Will reassess patient's clinical status and disposition accordingly. 01/03/21 07:57 Will d/c patient with rx for flexeril and motrin; return precautions and follow up instructions were discussed with patient and provided in discharge instruction educational handout. Departure - Departure Time of Disposition: 07:57 Disposition: Home, Self-Care 01 Condition: Good Clinical Impression: Shoulder pain, bilateral Qualifiers: Chronicity: acute Qualified Code(s): M25.511 - Pain in right shoulder; M25.512 - Pain in left shoulder - Discharge Information Prescriptions: Cyclobenzaprine [Flexeril] 10 mg PO TID PRN #20 tab PRN Reason: Muscle Spasm Ibuprofen [Motrin] 600 mg PO Q6H PRN #20 tab PRN Reason: Pain Instructions: Shoulder Pain Referrals: Don Liz,Ottoniel [Primary Care Provider] - Additional Instructions: I have sent to do for medications to her pharmacy, one is a pain medication and the other is a muscle relaxant. You have also been given a long-acting steroid in the emergency department which help with inflammation over the next few days. I would follow-up with your primary care physician or an orthopedic physician for further diagnostic work-up. Local orthopedic clinic information provided below. If your pain becomes unbearable or if you are having difficulty moving your arms you should come back to the emergency department for reassessment. [facility] [address], [address] [place] [address] The following information is given to patients seen in the emergency department who are being discharged to home. This information is to outline your options for follow-up care. We provide all patients seen in our emergency department with a follow-up referral. The need for follow-up, as well as the timing and circumstances, are variable depending upon the specifics of your emergency department visit. If you don't have a primary care physician on staff, we will provide you with a referral. We always advise you to contact your personal physician following an emergency department visit to inform them of the circumstance of the visit and for follow-up with them and/or the need for any referrals to a consulting specialist. The emergency department will also refer you to a specialist when appropriate. This referral assures that you have the opportunity for follow-up care with a specialist. All of these measure are taken in an effort to provide you with optimal care, which includes your follow-up. Under all circumstances we always encourage you to contact your private physician who remains a resource for coordinating your care. When calling for follow-up care, please make the office aware that this follow-up is from your recent emergency room visit. If for any reason you are refused follow-up, please contact the [facility] Emergency Department at and asked to speak to the emergency department charge nurse. Please follow up with your primary care physician. If you do not have a primary care physician, see below: [facility] [address] [place] [id number] [facility] [address] [place] [address] [facility] [address] [place] [id number] Sepsis Event Note (ED) - Focused Exam Vital Signs: Vital Signs Temp Pulse Resp BP Pulse Ox 01/03/21 07:22 95.8 F L 67 18 149/89 H 100
[2021-01-03] MEDS ORDERED: Ketorolac 30 MG/ML SDV IM ONE (07:31)
[2021-01-03] MEDS ORDERED: Dexamethasone 10 MG/ML SDV IM STA (07:31)
[2021-01-03] MEDS ORDERED: Cyclobenzaprine 10 MG Tab PO ONE (07:31)
== END 2021-01-03 08:19 | disposition home or self-care (01) ==
LOC: MW.ED 07:09
DX: M25.512 Pain in left shoulder (principal)
CPT/HCPCS: 96372; 99283; A9270; J1100; J1885

== ENCOUNTER 2022-05-13 01:56 | Emergency (ER) | payer BC ==
[2022-05-13] MEDS ORDERED: Metoclopramide Oral Soln 10 MG/10 ML UD Cup PO ONE (02:25)
[2022-05-13] MEDS ORDERED: Famotidine 20 MG/2 ML SDV IVPUSH ONE (02:25)
[2022-05-13] MEDS ORDERED: Sodium Chloride 0.9% 1,000 ML IV ONE (02:25)
[2022-05-13] MEDS ORDERED: Aluminum Hydroxide/Magnesium Hydroxide/Simethicone XS Susp 30 ML Cup PO ONE (02:25)
[2022-05-13] MEDS ORDERED: Lidocaine 2% Viscous Solution 15 ML UD PO ONE (02:25)
== END 2022-05-13 03:30 ==
LOC: MW.ED 01:56
DX: K21.9 Gastro-esophageal reflux disease without esophagitis (principal)
CPT/HCPCS: 96374; 99283; A9270; J3490; J7030

== ENCOUNTER 2022-09-12 14:04 | Emergency (ER) | payer BC ==
[2022-09-12] MEDS ORDERED: Lidocaine 1% PF 2 ML SDV INJECT ONE (14:06)
[2022-09-12] MEDS ORDERED: Diphtheria,Pertussis(Acell),Tetanus Vaccine 0.5 ML Syringe IM ONE (14:06)
[2022-09-12] MEDS ORDERED: Lidocaine 1% 4 ML ONE (15:08)
== END 2022-09-12 17:53 | disposition home or self-care (01) ==
LOC: MW.ED 14:04
DX: S66.222A Laceration of extensor muscle, fascia and tendon of left thumb at wrist and hand level, initial encounter (principal); Z88.6 Allergy status to analgesic agent; Z79.899 Other long term (current) drug therapy; Z23 Encounter for immunization; W18.40XA Slipping, tripping and stumbling without falling, unspecified, initial encounter
CPT/HCPCS: 12002; 73130-26-LT; 73130-LT; 90471; 90715; 99283-25; J3490

== ENCOUNTER 2023-02-19 19:04 | Emergency (ER) | payer BC ==
[2023-02-19] MEDS ORDERED: traMADol 50 MG Tab PO STA (20:44)
[2023-02-19] MEDS ORDERED: Amoxicillin/Clavulanate K 875-125 MG Tab PO STA (20:44)
== END 2023-02-19 21:11 | disposition home or self-care (01) ==
LOC: MW.ED 19:04
DX: K04.7 Periapical abscess without sinus (principal); Z88.6 Allergy status to analgesic agent
CPT/HCPCS: 99282; A9270; 99283

== ENCOUNTER 2023-12-12 18:07 | Emergency (ER) | payer BC ==
[2023-12-12] MEDS: Famotidine 20 MG/2 ML SDV IVPUSH STA (18:19)
[2023-12-12] MEDS: methylPREDNISolone Sodium Succinate 125 MG/2 ML SDV IVPUSH STA (18:19)
[2023-12-12] MEDS: diphenhydrAMINE 50 MG/ML SDV IVPUSH STA (18:19)
[2023-12-12] MEDS: Sodium Chloride 0.9% 1,000 ML IV STA (18:19)
== END 2023-12-12 19:22 | disposition home or self-care (01) ==
LOC: MW.ED 18:07
DX: L50.0 Allergic urticaria (principal); T48.3X5A Adverse effect of antitussives, initial encounter; Z75.8 Other problems related to medical facilities and other health care; Z88.6 Allergy status to analgesic agent
CPT/HCPCS: 96361; 96374; 96375; 99283; J1200; J2930; J3490; J7030; 99284

== ENCOUNTER 2024-07-13 14:22 | Emergency (ER) | payer BC | END 2024-07-13 14:57 | disposition left against medical advice (07) | LOC: MW.ED 14:22 | DX: Z53.21 Procedure and treatment not carried out due to patient leaving prior to being seen by health care provider (principal) ==